=== PATIENT | male | born 1950 | race Two or more races ===

== ENCOUNTER 2018-12-02 09:42 | Emergency (ER) | payer MEDICARE, BC ==
[2018-12-02] MEDS ORDERED: ALTEPLASE INJ 100 MG VIAL ONE (10:12)
[2018-12-02 10:16] LABS: VENOUS BLOOD BASE EXCESS -0.7 mmol/L; VENOUS BLOOD HCO3 24.9 mmol/L (20-32); VENOUS BLOOD PCO2 44.7 mmHg (35-63); VENOUS BLOOD PH 7.36 (7.30-7.42)
--- NOTE | 2018-12-02 10:16 | ER Document Report ---
ED General - General Stated Complaint: WEAKNESS Time Seen by Provider: 12/02/18 09:52 Primary Care Provider: PRADEEP TSANG MD [Primary Care Provider] - Follow up as needed - HPI Patient complains to provider of: Weakness Notes: Patient coming in for evaluation of weakness according to the patient got up this morning was walking around the house doing what he felt was his normal routine when she heard the patient fall in the bathroom. Patient was found the floor states this occurred around [phone] patient otherwise day prior had a normal day with no signs of anything out of the ordinary according to the . states he is does have a history of migraines and has been evaluated at [facility] and [place] and is currently on tesimix for his migraine headaches. states that he had a migraine headache now for approximately 1 month and has been compliant with his medications otherwise patient does have a history of hypertension and is on a baby aspirin denies any recent surgery denies any recent trauma denies any fevers chills nausea vomiting in the last 24 hours. Patient was brought in by EMS upon initial evaluation patient is GCS of approximately 11-12 with a leftward gaze is able to open his eyes spontaneously has some garbled speech but mostly is a phasic does have a gag intact when installation of a tongue depressor is inserted patient does have good strength able to bite down the tongue depressor no obvious signs of trauma. Patient was taken to the CT scan for stroke alert - Related Data Allergies/Adverse Reactions: meperidine [From Demerol] Allergy (Verified 12/02/18 11:05) Past Medical History - Social History Smoking Status: Unknown if Ever Smoked Family History: None Review of Systems - Review of Systems Notes: ams -: Yes ROS unobtainable due to patient's medical condition Physical Exam - Vital signs Vitals: Resp BP Pulse Ox 16 146/77 H 94 12/02/18 09:33 12/02/18 09:33 12/02/18 09:33 Interpretation: Normal - General General appearance: Alert, Other - Somnolent - HEENT Head: Normocephalic, Atraumatic Eyes: Normal Pupils: PERRL Neck: Normal - Respiratory Respiratory status: No respiratory distress Chest status: Nontender Breath sounds: Normal Chest palpation: Normal - Cardiovascular Rhythm: Regular Heart sounds: Normal auscultation Murmur: No - Abdominal Inspection: Normal Distension: No distension Bowel sounds: Normal Tenderness: Nontender Organomegaly: No organomegaly - Back Back: Normal, Nontender - Extremities General upper extremity: Normal inspection, Nontender, Normal color, Normal temperature General lower extremity: Normal inspection, Nontender, Normal color, Normal temperature - Neurological Second [place] Coma Scale Eye Opening: Spontaneous Second [place] Coma Scale Verbal: None Second [place] Coma Scale Motor: Obeys Commands Sara Coma Scale Total: 11 Speech: Normal Babinski reflex: Normal (flexor plantar) Sensory: Normal Notes: Please see NIH score - Psychological Associated symptoms: Normal affect, Normal mood - Skin Skin Temperature: Warm Skin Moisture: Dry Skin Color: Normal Course - Re-evaluation Re-evalutation: 12/02/18 10:22 Patient coming in for signs of possible stroke. Patient was taken of the CT scan because he is found for also a head CT of the cervical spine. Patient's NIH score is initially 17 with a left-sided gaze total right sided neglect with no movement of the right upper or right lower extremity. Patient does have a GCS of 12-11 at this time able to open his eyes spontaneously will mumble a few words and will follow commands when I am standing on the left side. No need for intubation at this time. Discussed the case with . states that the patient was up and about her early this morning doing what she felt was his normal routine however found him on the ground and heard him fall around [phone] EMS was dispatched [phone]. Dr. Rodriguez agrees at this time TPA should be administered and the patient should be transferred emergently to their facility for further evaluation. Patient has no exclusion criteria for receiving TPA did discuss with the who also agrees with administration of TPA. TPA is currently being given aircraft crew is at bedside patient will be transferred at this time stable for acute stroke - Vital Signs Vital signs: Temp Pulse Resp BP Pulse Ox 95.8 F L 67 12 145/93 H 93 12/02/18 10:37 12/02/18 10:37 12/02/18 10:37 12/02/18 10:37 12/02/18 10:37 - Laboratory Result Diagrams: 12/02/18 09:57 12/02/18 09:57 Laboratory results interpreted by me: 12/02/18 12/02/18 12/02/18 09:57 10:09 10:20 Chloride 112 H Creatinine 1.40 H Est GFR (Non-Af Amer) 50 L Glucose 127 H POC Glucose 131 H Calcium 10.5 H ALT 16 L Urine Blood SMALL H Ur Leukocyte Esterase TRACE H Critical Care Note - Critical Care Note Total time excluding time spent on procedures (mins): 50 Comments: Multiple evaluations discussion with family members and neurology about care patient with acute stroke Discharge - Discharge Clinical Impression: Acute CVA (cerebrovascular accident) Disposition: [facility] Referrals: PRADEEP TSANG MD [Primary Care Provider] - Follow up as needed ED NIH Stroke Scale - NIH Stroke Scale *: 1. NIH scale should be completed with appropriate accompanying assessment tools. *: 2. The NIH should reflect what the patient is capable of doing and should not be coached by the clinician. 1a. Level of Consciousness: 0=Alert;keenly responsive -: 1=Drowsy -: 2=Obtunded -: 3=Coma/unresponsive or reflex to noxious stimuli. 1a. Responses: 1 1b. Orientation Questions: a. What month is it? -: b. How old are you? -: 0=Answers both questions correctly. -: 1=Answers one question correctly or patient is intubated or has orotracheal trauma. -: 2=Answers neither question correctly. 1b. Responses: 1 1c. Response to commands: a. Open and close eyes? -: b. Steelworker and release hand? -: Credit is given despite weakness. Demonstration of task is permitted. Substitute command if hands cannot be used. -: 0=Performs both tasks correctly -: 1=Performs one task correctly -: 2=Performs neither task correctly 1c. Responses: 1 2. Gaze: Establish eye contact and instruct patient to "Follow my finger" -: 0=Normal -: 1=Partial gaze palsy. Gaze is abnormal in one or both eyes, but where forced deviation or total gaze paresis is not present. -: 2=Forced deviation or total gaze paresis. 2. Responses: 1 3. Visual Perez: Sees fingers in all four quadrants. -: 0=No visual loss. -: 1=Partial hemianopsia. -: 2=Complete hemianopsia. -: 3=Bilateral hemianopsia (including Cortical blindness) 3. Responses: 0 4. Facial Movement: Instruct patient to: -: a. Show me your teeth -: b. Raise your eyebrows -: c. Close your eyes -: d. Smile -: 0=Normal symmetrical movement -: 1=Minor paralysis (flattened nasolabial fold, asymmetry on smiling). -: 2=Partial paralysis (total or near total paralysis of lower face). -: 3=Complete paralysis of upper and lower face 4. Responses: 0 5. Motor functions (left arm): Alternate sides and extend each arm with palms down (90 degrees if sitting or 45 degrees for supine). -: 0=No drift;limb holds for full 10 seconds. -: 1=Drift; limb holds but drifts down before full 10 seconds, but does not hit bed. -: 2=Some effort against gravity; limb cannot get to or maintain position. -: 3=No effort against gravity; limb falls. -: 4=No movement. -: UN=Amputation, joint fusion, explain in comments. 5. Responses (left arm): 0 5. Motor Functions (right arm): Alternate sides and extend each arm with palms down (90 degrees if sitting or 45 degrees for supine). -: 0=No drift;limb holds for full 10 seconds. -: 1=Drift; limb holds but drifts down before full 10 seconds, but does not hit bed. -: 2=Some effort against gravity; limb cannot get to or maintain position. -: 3=No effort against gravity; limb falls. -: 4=No movement. -: UN=Amputation, joint fusion, explain in comments. 5. Responses (right arm): 4 6. Motor Functions (left leg): With patient lying supine, alternate sides and extend each leg (30 degrees always while supine). -: 0=No drift, leg holds position for full 5 seconds -: 1=Drift; leg falls before full 5 seconds but does not hit bed. -: 2=Some effort against gravity, leg falls to bed but some effort against gravity. -: 3=No effort against gravity, leg falls to bed immediately. -: 4=No movement. -: UN=Amputation, joint fusion; explain in comments. 6. Responses (left leg): 0 6. Motor Functions (right leg): With patient lying supine, alternate sides and extend each leg (30 degrees always while supine). -: 0=No drift, leg holds position for full 5 seconds -: 1=Drift; leg falls before full 5 seconds but does not hit bed. -: 2=Some effort against gravity, leg falls to bed but some effort against gravity. -: 3=No effort against gravity, leg falls to bed immediately. -: 4=No movement. -: UN=Amputation, joint fusion; explain in comments. 6. Responses (right leg): 4 7. Limb Ataxia: With eyes open instruct patient to: -: a. "Touch your finger to your nose". -: b. "Touch your heel to your jacob" -: 0=Absent -: 1=Present in one limb. -: 2=Present in two limbs. -: UN=Amputation or joint fusion; explain in comments. 7. Responses: UN 8. Sensory: Test sensation using pinprick or noxious stimuli. Test as many body parts as possible. -: 0=Normal;no sensory loss -: 1=Mile to moderate sensory loss (patient feels pin prick but is less sharp on affected side). -: 2=Severe or total sensory loss. 8. Responses: 0 9. Best Language: Instruct patient to: -: a. "Describe what you see in this picture." -: b. "Name the items in this picture." -: c. "Read these sentences." -: 0=No aphasia, normal -: 1=Mild to moderate aphasia. -: 2=Severe aphasia -: 3=Mute, global aphasia, no usable speech or auditory comprehension. 9. Responses: 3 10. Articulation, Dysarthia: Instruct patient to: -: "Read these words" or "Repeat these words" -: 0=Normal -: 1=Mild to moderate; patient may slur some words but can be understood without difficulty. -: 2=Severe; patients speech so slurred as to be unintelligible in the absence of dysphasia. -: UN=Intubated or other physical barrier, explain in comments. 10. Responses: 1 11. Extinction or inattention: 0=No abnormality -: 1= Visual, tactile, auditory, spatial, or personal inattention or extinction to bilateral simulation in one or the sensory modalities. -: 2=Profound dionte-inattention or dionte-inattention to more than one modality; does not recognize own hand. 11. Responses: 1 Total Score: 17 Notes: Patient is a phasic during the examination can not speak Inclusion/Exclusion-STEMI - Absolute Contraindications: Any prior Intracranial Hemorrhage: No Known structural cerebral vascular lesion (AV malformations): No Known malignant intracranial neoplasm (primary ormetastatic): No Ischemic stroke within 3 months: No Suspected aortic dissection: No Active bleeding or bleeding diathesis (excluding menses): No Significant closed head or facial trauma within 3 months: No Intracranial or intraspinal surgery within 2 months: No Severe uncontrolled hypertension unresponsive: No If yes to any of the above, DO NOT ADMINISTER FIBRINOLYTIC. Prepare patient for rapid transfer for primary PCI. - Relative Contraindictations: History of chronic, severe. poorly controlled HTN: No Significant HTN on presentation: No History of prior ischemic stroke greater than 3 months: No Dementia: No Known intracranial pathology not covered in: No Traumatic or prolonged CPR (Greater than 10 minutes): No Major Surgery less than 3 weeks: No Recent internal bleeding (within 2-4 weeks): No Non compressible vascular puncture: No : No Active peptic ulcer: No Oral anticoagulant therapy: No Consider transfer for primary PCI, if severe symptoms of cardiogenic shock (SBP less than 90 or Pulse pressure greater than 20 mmHg).
[2018-12-02 10:21] LABS: INTERNATIONAL RATION (INR) 0.93; PARTIAL THROMBOPLASTIN TIME 24.4 SEC (23.5-35.8); PROTHROMBIN TIME 12.9 SEC (11.4-15.4)
[2018-12-02 10:24] LABS: ABSOLUTE BASOPHILS # (AUTO) 0.1 10^3/uL (0.0-0.2); ABSOLUTE EOSINOPHILS # (AUTO) 0.3 10^3/uL (0.0-0.6); ABSOLUTE LYMPHOCYTES (AUTO) 1.6 10^3/uL (0.5-4.7); ABSOLUTE MONOCYTES (AUTO) 0.4 10^3/uL (0.1-1.4); ABSOLUTE NEUT (AUTO) 4.9 10^3/uL (1.7-8.2); BASOPHILS % (AUTO) 0.8 % (0-2); EOSINOPHILS % (AUTO) 4.4 % (0-6); HEMATOCRIT 43.1 % (37.9-51.0); HEMOGLOBIN 15.1 g/dL (13.5-17.0); LYMPHOCYTES % (AUTO) 22.4 % (13-45); MEAN CORPUSCULAR HEMOGLOBIN 30.7 pg (27.0-33.4); MEAN CORPUSCULAR HGB CONC 34.9 g/dL (32.0-36.0); MEAN CORPUSCULAR VOLUME 88 fl (80-97); MONOCYTES % (AUTO) 5.2 % (3-13); PLATELET COUNT 281 10^3/uL (150-450); RED BLOOD COUNT 4.91 10^6/uL (4.35-5.55); RED CELL DISTRIBUTION WIDTH 13.2 % (11.5-14.0); SEGMENTED NEUTROPHILS % (AUTO) 67.2 % (42-78); TOTAL CELLS COUNTED % (AUTO) 100 %; WHITE BLOOD COUNT 7.3 10^3/uL (4.0-10.5)
--- NOTE | 2018-12-02 10:31 | RADIOLOGY REPORT (SQ) ---
EXAM DESCRIPTION: CHEST SINGLE VIEW COMPLETED DATE/TIME: 12/02/2018 10:01 am REASON FOR STUDY: t1 stroke alert COMPARISON: None. EXAM PARAMETERS: NUMBER OF VIEWS: One view. TECHNIQUE: Single frontal radiographic view of the chest acquired. RADIATION DOSE: NA LIMITATIONS: None. FINDINGS: LUNGS AND PLEURA: No opacities, masses or pneumothorax. No pleural effusion. MEDIASTINUM AND HILAR STRUCTURES: Prominent central hilar vessels HEART AND VASCULAR STRUCTURES: Mild cardiomegaly BONES: No acute findings. HARDWARE: None in the chest. OTHER: No other significant finding. IMPRESSION: NO ACUTE RADIOGRAPHIC FINDING IN THE CHEST. TECHNICAL DOCUMENTATION: JOB ID: [id number] [employer]- All Rights Reserved Reading location - IP/workstation name: [email or web address]
--- NOTE | 2018-12-02 10:33 | RADIOLOGY REPORT (SQ) ---
EXAM DESCRIPTION: CT HEAD WITHOUT COMPLETED DATE/TIME: 12/02/2018 10:06 am REASON FOR STUDY: t1 stroke alert COMPARISON: None. TECHNIQUE: Axial images acquired through the brain without intravenous contrast. Images reviewed wi th bone, brain and subdural windows. Additional sagittal and coronal reconstructions were generated. Images stored on PACS. All CT scanners at this facility use dose modulation, iterative reconstruction, and/or weight based d osing when appropriate to reduce radiation dose to as low as reasonably achievable (ALARA). [facility]: Dose Right [facility]: CareDose [facility]: Dose Right [facility]: Teradose 4D [facility]: [employer] RADIATION DOSE: mGy. LIMITATIONS: None. FINDINGS: VENTRICLES: Prominent. CEREBRUM: No masses. No hemorrhage. No midline shift. Areas of low density in the white matter mos t likely due to chronic micro-vascular ischemic change. Hyperdense left MCA. CEREBELLUM: No masses. No hemorrhage. No alteration of density. No evidence for acute infarction. EXTRAAXIAL SPACES: Mild age-related involutional change. No fluid collections. No masses. ORBITS AND GLOBE: No intra- or extraconal masses. Normal contour of globe without masses. CALVARIUM: No fracture. PARANASAL SINUSES: No fluid or mucosal thickening. SOFT TISSUES: No mass or hematoma. OTHER: No other significant finding. IMPRESSION: Hyperdense left MCA suspicious for acute infarct. No hemorrhage. EVIDENCE OF ACUTE STROKE: YES. LEFT MCA COMMENT: Pertinent positive or negative findings of the imaging study reported as a CRITICAL EXAM cedric floyd JASON WOO DO at10:20 on 12/02/2018. Category of Critical Exam: Stroke alert. TECHNICAL DOCUMENTATION: JOB ID: [id number] Quality ID # [id number]: Final reports with documentation of one or more dose reduction techniques (e.g., Au tomated exposure control, adjustment of the mA and/or kV according to patient size, use of iterative reconstruction technique) 2010 [employer]- All Rights Reserved Reading location - IP/workstation name: [email or web address]
[2018-12-02 10:34] VITALS: BP 145/93
[2018-12-02 10:35] LABS: ALANINE AMINOTRANSFERASE 16 U/L (21-72); ALKALINE PHOSPHATASE 76 U/L (38-126); ANION GAP 9 (5-19); ASPARTATE AMINO TRANSFERASE 20 U/L (17-59); BILIRUBIN,DIRECT 0.4 mg/dL (0.0-0.4); BILIRUBIN,TOTAL 0.7 mg/dL (0.2-1.3); BLOOD UREA NITROGEN 20 mg/dL (7-20); CALCIUM 10.5 mg/dL (8.4-10.2); CARBON DIOXIDE 23 mmol/L (22-30); CHLORIDE 112 mmol/L (98-107); CREATINE KINASE 80 U/L (55-170); GLUCOSE 127 mg/dL (75-110); POTASSIUM 4.5 mmol/L (3.6-5.0); SODIUM 144.1 mmol/L (137-145); TOTAL PROTEIN 6.7 g/dL (6.3-8.2)
--- NOTE | 2018-12-02 10:35 | RADIOLOGY REPORT (SQ) ---
EXAM DESCRIPTION: CT CERVICAL SPINE WITHOUT COMPLETED DATE/TIME: 12/02/2018 10:06 am REASON FOR STUDY: t1 stroke laert s/p fall per dr tirado COMPARISON: None. TECHNIQUE: Axial images acquired through the cervical spine without intravenous contrast. Images re viewed with lung, soft tissue and bone windows. Reconstructed coronal and sagittal MPR images review ed. Images stored on PACS. All CT scanners at this facility use dose modulation, iterative reconstruction, and/or weight based d osing when appropriate to reduce radiation dose to as low as reasonably achievable (ALARA). [facility]: Dose Right [facility]: CareDose [facility]: Dose Right [facility]: Teradose 4D [facility]: [employer] RADIATION DOSE: CT Rad equipment meets quality standard of care and radiation dose reduction techniq ues were employed. CTDIvol: 22.0 mGy. DLP: 482 mGy-cm. mGy. LIMITATIONS: None. FINDINGS: ALIGNMENT: Anatomic. MINERALIZATION: Normal. VERTEBRAL BODIES: No fractures or dislocation. DISCS: Multilevel disc space narrowing with osteophytes. FACETS, LATERAL MASSES, POSTERIOR ELEMENTS: No acute findings. Well corticated bone fragments dorsal to the C6 and C7 dorsal spinous processes consistent with remote trauma or apophysis. HARDWARE: None in the spine. VISUALIZED RIBS: No fractures. LUNG APICES AND SOFT TISSUES: No significant or acute findings. OTHER: No other significant finding. IMPRESSION: CHRONIC DEGENERATIVE CHANGES. NO ACUTE FINDINGS. TECHNICAL DOCUMENTATION: JOB ID: [id number] Quality ID # [id number]: Final reports with documentation of one or more dose reduction techniques (e.g., Au tomated exposure control, adjustment of the mA and/or kV according to patient size, use of iterative reconstruction technique) 2010 [facility]- All Rights Reserved Reading location - IP/workstation name: [email or web address]
[2018-12-02 10:36] LABS: ALCOHOL < 10 mg/dL (NONE DETECTED)
[2018-12-02 10:46] LABS: CREATINE KINASE MB 0.75 ng/mL (<4.55)
[2018-12-02 10:50] LABS: TROPONIN I < 0.012 ng/mL
[2018-12-02 11:51] LABS: APPEARANCE,URINE CLOUDY; BILIRUBIN,URINE NEGATIVE (NEGATIVE); COLOR,URINE YELLOW; GLUCOSE, URINE NEGATIVE (NEGATIVE); KETONES,URINE NEGATIVE (NEGATIVE); LEUKOCYTE ESTERASE,URINE TRACE (NEGATIVE); NITRITE,URINE NEGATIVE (NEGATIVE); PROTEIN,URINE NEGATIVE (NEGATIVE); URINE SPECIFIC GRAVITY 1.016; UROBILINOGEN,URINE NEGATIVE mg/dL (<2.0)
[2018-12-02 12:05] LABS: URINE AMPHETAMINES SCREEN NEGATIVE; URINE BARBITURATES SCREEN NEGATIVE; URINE BENZODIAZEPINES SCREEN NEGATIVE; URINE COCAINE SCREEN NEGATIVE; URINE MARIJUANA (THC) SCREEN NEGATIVE; URINE METHADONE SCREEN NEGATIVE; URINE PHENCYCLIDINE SCREEN NEGATIVE
--- NOTE | 2018-12-02 17:01 | EKG REPORT ---
SEVERITY:- NORMAL ECG - SINUS RHYTHM : Confirmed by: Latoya Jones 02-Dec-2018 17:00:32
== END 2018-12-02 10:40 | disposition short-term general hospital (02) ==
LOC: ER 09:42
DX: I63.9 Cerebral infarction, unspecified (principal); R53.1 Weakness; W18.30XA Fall on same level, unspecified, initial encounter; Y92.002 Bathroom of unspecified non-institutional (private) residence as the place of occurrence of the external cause; R40.2422 Glasgow coma scale score 9-12, at arrival to emergency department
CPT/HCPCS: 93005; 99291; 51702; 96374; 36415; 82553; 82962; 80307 ×2; 82550; 85025; 85610; 85730; 80053; 81001; 84484; 82803; 71045; 70450; 72125; 93010; J2997